=== PATIENT | female | born 1940 | race Caucasian/White ===

== ENCOUNTER 2016-12-30 21:56 | Observation (INO) | payer MEDICARE ==
[~2016-12-30] VITALS: Ht 170.2 cm; Wt 63.0 kg
[~2016-12-30 21:56] MED LIST: TAB-TAB PO; prempro PO
[2016-12-30 21:58] VITALS: BP 224/90; PULSE 71; RESP 14; TEMP 97.8; O2SAT 98
[2016-12-30] MEDS ORDERED: SODIUM CHLORIDE 0.9% FLUSH 10 ML FLUSH IVF PRN (23:00)
[2016-12-30] MEDS ORDERED: HYDROmorphone HCL PF 1 MG/ML VIAL IVS ONE (23:00)
[2016-12-30 23:44] LABS: AUTOMATED NEUTROPHIL # 10.1 TH/MM3 (1.8-7.7); BASOPHIL % 0.3 % (0.0-2.0); EOSINOPHIL # 0.1 TH/MM3 (0-0.4); EOSINOPHIL % 0.4 % (0.0-4.0); HEMATOCRIT 41.7 % (35.0-46.0); HEMO FLAGS DIFF FINAL; LYMPH % 17.8 % (9.0-44.0); LYMPHOCYTE # 2.5 TH/MM3 (1.0-4.8); MEAN CELL VOLUME 87.7 FL (80.0-100.0); MEAN CORPUSCULAR HEMOGLOBIN 28.9 PG (27.0-34.0); MONO % 10.4 % (0.0-8.0); NEUT % 71.1 % (16.0-70.0); PLATELET COUNT 307 TH/MM3 (150-450); RED BLOOD COUNT 4.75 MIL/MM3 (4.00-5.30); RED CELL DISTRIBUTION WIDTH 13.1 % (11.6-17.2); WHITE BLOOD COUNT 14.3 TH/MM3 (4.0-11.0)
[2016-12-31] VITALS (8 sets, daily range): BP systolic 119–191; BP diastolic 58–79; PULSE 61–78; RESP 17–24; TEMP 98–98.1; O2SAT 95–100
[2016-12-31 00:06] LABS: BICARBONATE 31.5 MEQ/L (21.0-32.0)
[2016-12-31] MEDS ORDERED: diphenhydrAMINE HCL 50 MG/ML VIAL IVP ONE (00:30)
[2016-12-31] MEDS ORDERED: PROCHLORPERAZINE INJ 10 MG/2 ML VIAL IVP ONE (00:30)
[2016-12-31] MEDS ORDERED: SODIUM CHLOR 0.9% 1000 ML INJ 1,000 ML IV ONE (00:30)
[2016-12-31] MEDS ORDERED: IOHEXOL 350 MG/ML 10 ML VIAL (for RAD DIAG) IV ONE (00:45)
--- NOTE | 2016-12-31 00:52 | PD ---
HPI Chief Complaint: Back/ Neck Pain or Injury Time Seen by Provider: 22:25 Travel History International Travel<30 days: No Contact w/Intl Traveler<30days: No Traveled to known affect area: No History of Present Illness HPI 76-year-old female arrives complaining of neck pain. It started at rest somewhat abruptly several hours prior and has constantly worsened since. The neck is painful on both sides and radiates anteriorly. Any range of motion of the neck, rotation or flexion extension worsens the pain. She has no numbness tingling weakness. No memory or mentation change has been observed by the patient or family. No similar prior episode has occurred. She denies any change in her normal routine or potential etiology of which she can identify to explain her pain. [facility] Past Medical History Medical History: Denies Significant Hx Cancer: Yes (melanoma removed left arm) Cardiovascular Problems: No Diabetes: No Diminished Hearing: No Hepatitis: No Hiatal Hernia: No Hypertension: No Medical other: Yes (arthritis in the hands and reflux) Respiratory: No Thyroid Disease: No Tetanus Vaccination: > 5 Years Influenza Vaccination: Yes ?: Not Menopausal: Yes Past Surgical History Gynecologic Surgery: Yes (magalis breast implants tubal face lift) Hysterectomy: Yes Other Surgery: Yes Social History Alcohol Use: Yes (WINE WEEKLY) Tobacco Use: No Substance Use: No Allergies-Medications (Allergen,Severity, Reaction): Coded Allergies: penicillin G (Unverified Allergy, Severe, rash, 12/30/16) codeine (Verified Allergy, Unknown, 12/30/16) Reported Meds & Prescriptions Reported Meds & Active Scripts Active Reported Multivitamin (Multivitamins) 1 Tab Tab 1 Tab PO DAILY [prempro] PO DAILY Review of Systems Except as stated in HPI: all other systems reviewed are Neg Physical Exam Narrative GENERAL: 76-year-old female well-nourished well-developed male pleasant mild distress secondary to pain SKIN: Warm and dry. HEAD: Atraumatic. Normocephalic. EYES: Pupils equal and round. No scleral icterus. No injection or drainage. ENT: No nasal bleeding or discharge. Mucous membranes pink and moist. NECK: Trachea midline. No JVD. Range of motion limited with rotation flex and extension. Minimal tenderness palpation along the paracervical musculature. CARDIOVASCULAR: Regular rate and rhythm. RESPIRATORY: No accessory muscle use. Clear to auscultation. Breath sounds equal bilaterally. GASTROINTESTINAL: Abdomen soft, non-tender, nondistended. Hepatic and splenic margins not palpable. MUSCULOSKELETAL: Extremities without clubbing, cyanosis, or edema. No obvious deformities. NEUROLOGICAL: Awake and alert. No obvious cranial nerve deficits. Motor grossly within normal limits. Five out of 5 muscle strength in the arms and legs. Normal speech. PSYCHIATRIC: Appropriate mood and affect; insight and judgment normal. Data Data Last Documented VS Vital Signs Date Time Temp Pulse Resp B/P Pulse Ox O2 Delivery O2 Flow Rate FiO2 12/31/16 01:10 75 19 191/79 100 Nasal Cannula 2 12/30/16 21:58 97.8 Vital signs reviewed Orders Complete Blood Count With Diff (12/30/16 22:58) Basic Metabolic Panel (Bmp) (12/30/16 22:58) Ecg Monitoring (12/30/16 22:58) Iv Access Insert/Monitor (12/30/16 22:58) Oximetry (12/30/16 22:58) Sodium Chloride 0.9% Flush (Ns Flush) (12/30/16 23:00) Hydromorphone Pf Inj (Dilaudid Pf Inj) (12/30/16 23:00) Ct Brain W/O Iv Contrast(Rout) (12/30/16 ) Cta Neck W Iv Contrast W 3d (12/31/16 ) Cta Brain W Iv Contrast W 3d (12/31/16 ) Sodium Chlor 0.9% 1000 Ml Inj (Ns 1000 M (12/31/16 00:30) Prochlorperazine Inj (Compazine Inj) (12/31/16 00:30) Diphenhydramine Inj (Benadryl Inj) (12/31/16 00:30) Iohexol 350 Inj (Omnipaque 350 Inj) (12/31/16 00:45) Hydromorphone Pf Inj (Dilaudid Pf Inj) (12/31/16 01:00) Enalaprilat Inj (Vasotec Inj) (12/31/16 01:45) C-Reactive Protein (Crp) (12/31/16 01:41) Westergren Sedimentation Rate (12/31/16 01:41) Admit Order (Ed Use Only) (12/31/16 01:54) Labs Laboratory Tests Test 12/30/16 23:10 White Blood Count 14.3 TH/MM3 Red Blood Count 4.75 MIL/MM3 Hemoglobin 13.7 GM/DL Hematocrit 41.7 % Mean Corpuscular Volume 87.7 FL Mean Corpuscular Hemoglobin 28.9 PG Mean Corpuscular Hemoglobin 33.0 % Concent Red Cell Distribution Width 13.1 % Platelet Count 307 TH/MM3 Mean Platelet Volume 9.5 FL Neutrophils (%) (Auto) 71.1 % Lymphocytes (%) (Auto) 17.8 % Monocytes (%) (Auto) 10.4 % Eosinophils (%) (Auto) 0.4 % Basophils (%) (Auto) 0.3 % Neutrophils # (Auto) 10.1 TH/MM3 Lymphocytes # (Auto) 2.5 TH/MM3 Monocytes # (Auto) 1.5 TH/MM3 Eosinophils # (Auto) 0.1 TH/MM3 Basophils # (Auto) 0.0 TH/MM3 CBC Comment DIFF FINAL Differential Comment Erythrocyte Sedimentation Rate 22 mm/hr Sodium Level 136 MEQ/L Potassium Level 4.0 MEQ/L Chloride Level 99 MEQ/L Carbon Dioxide Level 31.5 MEQ/L Anion Gap 6 MEQ/L Blood Urea Nitrogen 13 MG/DL Creatinine 0.79 MG/DL Estimat Glomerular Filtration 71 ML/MIN Rate Random Glucose 109 MG/DL Calcium Level 9.1 MG/DL C-Reactive Protein 3.41 MG/DL [facility] Medical Decision Making Medical Screen Exam Complete: Yes Emergency Medical Condition: Yes Medical Record Reviewed: Yes Differential Diagnosis Aneurysm, meningitis, subarachnoid hemorrhage, torticollis, spasm, mass, arthritis, venous thrombosis Narrative Course CBC & BMP Diagram 12/30/16 23:10 Patient reassessed at approximately 12:15 AM and reports nausea and minimal if any improvement. She had received 0.5 mg hydromorphone and Zofran. Benadryl, Compazine and IV fluids added on. Patient reassessed at 1 AM and reported persistent pain. 0.5 mg hydromorphone again ordered. The patient was advised of the workup so far and that she will be staying for pain control. The oncoming provider will follow up the results of the pending imaging with the plan for admission. Fito Hayward MD Dec 31, 2016 00:52
[2016-12-31] MEDS ORDERED: HYDROmorphone HCL PF 1 MG/ML VIAL IV PUSH ONE (01:00)
--- NOTE | 2016-12-31 01:09 | RADRPT ---
EXAM DATE/TIME: 12/31/2016 00:34 [facility] COMPARISON: No previous studies available for comparison. INDICATIONS : Cephalgia. RADIATION DOSE: 34.17 CTDIvol (mGy) MEDICAL HISTORY : None SURGICAL HISTORY : None. ENCOUNTER: Initial ACUITY: 1 day PAIN SCALE: 8/10 LOCATION: cranial TECHNIQUE: Multiple contiguous axial images were obtained of the head. Using automated exposure control and adj ustment of the mA and/or kV according to patient size, radiation dose was kept as low as reasonably a chievable to obtain optimal diagnostic quality images. DICOM format image data is available electro nically for review and comparison. FINDINGS: CEREBRUM: The ventricles are normal for age. No evidence of midline shift, mass lesion, hemorrhage or acute in farction. No extra-axial fluid collections are seen. POSTERIOR FOSSA: The cerebellum and brainstem are intact. The 4th ventricle is midline. The cerebellopontine angle i s unremarkable. EXTRACRANIAL: The visualized portion of the orbits is intact. SKULL: The calvaria is intact. No evidence of skull fracture. CONCLUSION: Negative noncontrast CT brain. Richmond Paz MD on December 31, 2016 at 1:07 Board Certified Radiologist. This report was verified electronically.
--- NOTE | 2016-12-31 01:14 | RADRPT ---
EXAM DATE/TIME: 12/31/2016 00:34 [facility] COMPARISON: CT BRAIN W/O CONTRAST, December 31, 2016, 0:34. INDICATIONS : Cephaliga and neck pain. IV CONTRAST: 75 cc Omnipaque 350 (iohexol) IV RADIATION DOSE: 25.95 CTDIvol (mGy) MEDICAL HISTORY : Melanoma SURGICAL HISTORY : None. ENCOUNTER: Initial ACUITY: 1 day PAIN SCALE: 8/10 LOCATION: neck Elevated flow velocities and ICA/CCA ratios have been found to correlate with increased degrees of vessel stenosis, calculated as percentage of diameter relative to a normal segment of distal ICA/CCA. TECHNIQUE: Volumetric scanning was performed using a multirow detector CT scanner. The data was post processed with a variety of visualization algorithms including full-volume maximum intensity projection, multip lanar sliding thin-slab reformation, curved-planar reformation, and surface-rendering techniques. Us ing automated exposure control and adjustment of the mA and/or kV according to patient size, radiatio n dose was kept as low as reasonably achievable to obtain optimal diagnostic quality images. DICOM f ormat image data is available electronically for review and comparison. FINDINGS: AORTIC ARCH: There is a three-vessel origin of the great vessels from the aorta. No evidence of ostial narrowing. RIGHT CAROTID: The common carotid artery is intact. The carotid bulb has a normal configuration without ulceration o r narrowing. The internal carotid artery lumen is smooth without stenosis. The external carotid clarita ry is intact. LEFT CAROTID: The common carotid artery is intact. The carotid bulb has a normal configuration without ulceration or narrowing. The internal carotid artery lumen is smooth without stenosis. The external carotid ar eloy is intact. VERTEBRALS: The vertebral arteries have a symmetric diameter. No stenotic lesions are seen. CONCLUSION: Negative CTA carotids. Richmond Paz MD on December 31, 2016 at 1:11 Board Certified Radiologist. This report was verified electronically.
--- NOTE | 2016-12-31 01:33 | RADRPT ---
EXAM DATE/TIME: 12/31/2016 00:34 [facility] COMPARISON: No previous studies available for comparison. INDICATIONS : Cephalgia and neck pain IV CONTRAST: 75 cc Omnipaque 350 (iohexol) IV RADIATION DOSE: 25.95 CTDIvol (mGy) ; Combined studies MEDICAL HISTORY : None SURGICAL HISTORY : None. ENCOUNTER: Initial ACUITY: 1 day PAIN SCALE: 8/10 LOCATION: cranial TECHNIQUE: Volumetric scanning was performed using a multi-row detector CT scanner. The data was post processed with a variety of visualization algorithms including full volume maximum intensity projection, multi -planar sliding thin slab reformation, curved planar reformation, and surface rendering techniques. Using automated exposure control and adjustment of the mA and/or kV according to patient size, radiat ion dose was kept as low as reasonably achievable to obtain optimal diagnostic quality images. DICO M format image data is available electronically for review and comparison. FINDINGS: There is excellent visualization of the major intracranial arteries out to the second-order branch ve ssels. There is no evidence for aneurysm, vessel truncation or stenosis, and no evidence for vascula r malformation. Flow is seen in the anterior communicating artery and both PCOM. CONCLUSION: Negative CTA of the [place] of [place]. Richmond Paz MD on December 31, 2016 at 1:30 Board Certified Radiologist. This report was verified electronically.
--- NOTE | 2016-12-31 01:44 | PD ---
Physical Exam Time Seen by Provider: 01:28 Data Data Last Documented VS Vital Signs Date Time Temp Pulse Resp B/P Pulse Ox O2 Delivery O2 Flow Rate FiO2 12/31/16 01:10 75 19 191/79 100 Nasal Cannula 2 12/30/16 21:58 97.8 Orders Complete Blood Count With Diff (12/30/16 22:58) Basic Metabolic Panel (Bmp) (12/30/16 22:58) Ecg Monitoring (12/30/16 22:58) Iv Access Insert/Monitor (12/30/16 22:58) Oximetry (12/30/16 22:58) Sodium Chloride 0.9% Flush (Ns Flush) (12/30/16 23:00) Hydromorphone Pf Inj (Dilaudid Pf Inj) (12/30/16 23:00) Ct Brain W/O Iv Contrast(Rout) (12/30/16 ) Cta Neck W Iv Contrast W 3d (12/31/16 ) Cta Brain W Iv Contrast W 3d (12/31/16 ) Sodium Chlor 0.9% 1000 Ml Inj (Ns 1000 M (12/31/16 00:30) Prochlorperazine Inj (Compazine Inj) (12/31/16 00:30) Diphenhydramine Inj (Benadryl Inj) (12/31/16 00:30) Iohexol 350 Inj (Omnipaque 350 Inj) (12/31/16 00:45) Hydromorphone Pf Inj (Dilaudid Pf Inj) (12/31/16 01:00) Enalaprilat Inj (Vasotec Inj) (12/31/16 01:45) C-Reactive Protein (Crp) (12/31/16 01:41) Westergren Sedimentation Rate (12/31/16 01:41) Admit Order (Ed Use Only) (12/31/16 01:54) Labs Laboratory Tests Test 12/30/16 23:10 White Blood Count 14.3 TH/MM3 Red Blood Count 4.75 MIL/MM3 Hemoglobin 13.7 GM/DL Hematocrit 41.7 % Mean Corpuscular Volume 87.7 FL Mean Corpuscular Hemoglobin 28.9 PG Mean Corpuscular Hemoglobin 33.0 % Concent Red Cell Distribution Width 13.1 % Platelet Count 307 TH/MM3 Mean Platelet Volume 9.5 FL Neutrophils (%) (Auto) 71.1 % Lymphocytes (%) (Auto) 17.8 % Monocytes (%) (Auto) 10.4 % Eosinophils (%) (Auto) 0.4 % Basophils (%) (Auto) 0.3 % Neutrophils # (Auto) 10.1 TH/MM3 Lymphocytes # (Auto) 2.5 TH/MM3 Monocytes # (Auto) 1.5 TH/MM3 Eosinophils # (Auto) 0.1 TH/MM3 Basophils # (Auto) 0.0 TH/MM3 CBC Comment DIFF FINAL Differential Comment Sodium Level 136 MEQ/L Potassium Level 4.0 MEQ/L Chloride Level 99 MEQ/L Carbon Dioxide Level 31.5 MEQ/L Anion Gap 6 MEQ/L Blood Urea Nitrogen 13 MG/DL Creatinine 0.79 MG/DL Estimat Glomerular Filtration 71 ML/MIN Rate Random Glucose 109 MG/DL Calcium Level 9.1 MG/DL MDM Medical Record Reviewed: Yes Supervised Visit with JENNIFER: No Narrative Course I assumed care of this patient pending CT imaging. Please see Dr. Conner's note for complete history of present illness. In summary this is an otherwise healthy 76-year-old female who developed abrupt onset posterior neck pain at 6 PM today. The pain is an aching pain that radiates into the occiput and is constant, worse with movement. She has received 2 doses of Dilaudid prior to my examination and she continues to have persistent pain. She denies any weakness, numbness or tingling in the extremities, blurred vision, chest pain or shortness of breath, fevers or chills, cough or congestion. She denies any injuries. The patient's CT imaging of the brain, CTA of the brain and neck are negative for acute process. WBC is slightly elevated at 14.3. The patient's blood pressure has been elevated during her hospital stay. Her most recent blood pressure reading was 183/81. 1.25 mg enalapril has been added on. Given the patient's intractable pain, the plan is to admit the patient for observation. She is agreeable. ESR/CRP have been ordered as well. Diagnosis Primary Impression: Neck pain Additional Impression: Hypertensive urgency Admitting Information Admitting Physician Requests: Observation Darian Arrieta Dec 31, 2016 01:44
[2016-12-31] MEDS ORDERED: ENALAPRILAT 1.25 MG/ML VIAL IV PUSH ONE (01:45)
[2016-12-31] MEDS ORDERED: cloNIDine HCL 0.1 MG TAB PO PRN (02:00)
[2016-12-31] MEDS ORDERED: NALOXONE HCL 0.4 MG/ML AMP IV PRN (02:00)
[2016-12-31] MEDS ORDERED: BISACODYL 10 MG SUPP RECTAL PRN (02:00)
[2016-12-31] MEDS ORDERED: ACETAMINOPHEN/HYDROcodone 325 MG/10 MG TAB PO PRN (02:00)
[2016-12-31] MEDS ORDERED: ACETAMINOPHEN 325 MG TAB PO PRN ×2 (02:00)
[2016-12-31] MEDS ORDERED: SENNOSIDES 8.6 MG TAB PO PRN (02:00)
[2016-12-31] MEDS ORDERED: SODIUM CHLORIDE 0.9% FLUSH 10 ML FLUSH IV FLUSH PRN (02:00)
[2016-12-31] MEDS ORDERED: ONDANSETRON HCL 4 MG/2 ML VIAL IVP PRN (02:00)
[2016-12-31] MEDS ORDERED: LACTULOSE SYRUP 20 GM/30 ML CUP PO PRN (02:00)
[2016-12-31] MEDS: ENOXAPARIN SODIUM 40 MG/0.4 ML SYRINGE SQ SCH (02:51)
[2016-12-31 06:27] LABS: BLOOD, URINE NEG (NEG); GLUCOSE,URINE NEG (NEG); KETONE, URINE NEG (NEG); MUCUS URINE FEW /lpf (OCC); SQUAMOUS EPITHELIAL CELL URINE 1 /hpf (0-5); URINE COLOR YELLOW (YELLW/STRAW)
[2016-12-31 06:28] LABS: COMMENT (UR) CULTURE INDICATED; CULTURE IF INDICATED CULTURE INDICATED; NITRITE,URINE POS (NEG)
--- NOTE | 2016-12-31 09:01 | EKG ---
Date Performed: 12/31/2016 Time Performed: 02:45:20 PTAGE: 76 years EKG: Sinus rhythm NORMAL ECG PREVIOUS TRACING : 04/21/2011 11.13 Compared to prior tracing no significant change DOCTOR: Derick Louis Interpretating Date/Time 12/31/2016 08:56:16
[2016-12-31] MEDS: SODIUM CHLORIDE 0.9% FLUSH 10 ML FLUSH IV FLUSH SCH ×2 (09:48→22:48)
[2016-12-31] MEDS: ACETAMINOPHEN/HYDROcodone 325 MG/5 MG TAB PO PRN ×2 (09:56→18:21)
[2016-12-31] MEDS: LEVOFLOXACIN 500 MG TAB PO SCH (09:56)
--- NOTE | 2016-12-31 10:41 | MH ---
cc: LYNN CLAUDIO MD DATE OF ADMISSION: 12/31/2016 DATE OF 1940 REASON FOR ADMISSION/CHIEF COMPLAINT Acute onset neck pain history. TRAVEL IN THE LAST 30 DAYS None HISTORY OF PRESENT ILLNESS This is a pleasant 76-year-old white female who has been in her usual state of health up until yesterday. She states that she slept well the night before admission, got up, came to [facility] to visit a friend. She noticed acute onset of neck pain and describes it as an aching pain on the left and right side of the back of her neck radiating down into her shoulders. She also noted that the pain went up into the back of her head. The patient states that she could not turn her neck and described the pain as very excruciating to the point that it was intolerable and the worst pain she had ever had. She denies any numbness or tingling in her upper extremities. Denies any problems with her gait or balance. States the pain is 50% better, but still persists. Pain management has assisted in the control, but she has had some mild nausea after taking the pain meds, but no vomiting. The patient denies any headaches, any chest tightness, states that her health has been good. She does note some end joint arthritis in her left and right two fingers. That has been managed by her PCP. When the patient was evaluated in the emergency room, blood pressure was accelerated high and the patient is known for any problems of hypertension. Now with blood pressure has come down and we will continue to monitor. MEDICAL HISTORY 1. Melanoma removed from the left arm. 2. End joint arthritis. 3. Reflux PAST SURGICAL HISTORY 1. Breast implants 2. Face lift 3. Tubal ligation 4. Hysterectomy ALLERGIES CODEINE, PENICILLIN G. MEDICATIONS 1. Active 2. Multivitamins 3. Prempro SOCIAL HISTORY The patient has social wine weekly. Smoked in her early years, but no tobacco use in 36. No illicit drugs. She is single, , lives alone. Has a lot of friends and family support. REVIEW OF SYSTEMS A 14-point review was obtained. Positives noted in the HPI which include ir-retractable neck pain left and right side. Could not turn her head. Continuous aching. No numbness or tingling. No problems with gait. Any other signs and symptoms negative or unremarkable. Some nausea after pain meds, but no vomiting. PHYSICAL EXAM VITAL SIGNS: Temperature is 97.8, pulse 71, respiratory rate 18, blood pressure 156/67. Please note that her blood pressure was 224/90 when she first came in and the patient is not known for any hypertension. O2 sat 98 currently on room air. Has been on O2 at two liters in the emergency room setting. GENERAL: A well-nourished, well-developed white female who looks to be younger than her stated age resting in the bed, alert, oriented, cooperative. SKIN: [place], warm and dry. HEAD, EYES, EARS, NOSE, AND THROAT: Atraumatic, normocephalic, PERRLA at 2. Mucous membranes are moist. No scleral icterus. Tongue and oral cavity are clear. NECK: Supple. CARDIOVASCULAR: S1-S2, rhythm is regular. No audible murmurs, rubs, or gallops. RESPIRATORY: Essentially clear anteriorly and posteriorly with no wheezes or rhonchi. ABDOMEN: Flat, soft, nontender, nondistended. Bowel sounds are active. MUSCULOSKELETAL: She moves her extremities with purpose. She has no obvious deformities. She has no edema. Pulses are intact. Extremities are warm. NEUROLOGIC: She is awake, alert, a good historian, equal hand cupola patcher. Normal speech. PSYCHIATRIC: Mood and affect are appropriate. DIAGNOSTIC DATA WBC count 14.3, RBC 4.7, hemoglobin 13.7, hematocrit 41.7. Chemistry sodium 136, potassium 4, chloride 99, BUN 13, creatinine 0.79, GFR 71, random glucose 109, calcium 9.1. C-reactive protein 3.41, procalcitonin is pending. Urine is yellow, clear, specific gravity greater than 1.050, trace of protein, positive nitrite, trace of leukocyte Estrace, bilirubin negative, glucose, ketones and occult blood negative. Culture is indicated and pending. ASSESSMENT AND PLAN 1. Hypertensive urgency which is now resolving with pain control. 2. Ir-retractable neck pain left and right side. No numbness or tingling in her extremities. 3. UTI possible. Culture is pending. 4. 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 Our plan is to monitor her vital signs, pain management. She had a full workup including CTA of neck, brain with IV contrast. No acute findings noted. ECG monitoring will continue. Medical management. Noted in her labs are a positive C-reactive protein. This will be further evaluated, but the patient does have a history of end joint arthritis. DVT prophylaxis. O2 as needed pain management IV and/or p.o. The patient is listed in observation. Urine culture is pending. Since pain continues, we will look at further testing and evaluation that need to be done today. We will put the patient on p.o. Levaquin for a possible UTI. The patient is full code, full aggressive care. We will follow. 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 I reviewed the findings presented. I attest that I had a [id number] encounter with the patient on the same day, and personally performed and documented my assessment and findings in the medical record. [place]
--- NOTE | 2016-12-31 11:16 | PD.PN.STU ---
Subjective Remarks HPI: Patient being seen for complaint of neck pain. Patient reports that the pain came on suddenly last night which prompted her to come to the ER. The pain is along the back of her neck and occipital region, radiating anteriorly. She described the pain as a constant ache was 10/10 on the pain scale initially. She tried using heat on her neck last evening but did not find this to relieve her symptoms. The pain is worsened by movement and laying flat. Upon admission she was given Dilaudid for the pain and this did not help initially but is providing some relief now; the pain is currently a 6 on the pain scale, and is constant. She has found it difficult to get comfortable overnight which prevented her from getting any significant sleep. She has never had any symptoms like this before. She cannot recall any significant inciting event, trauma, or any recent sick contacts. She did mention that she went on a road trip to [place] last week where she was driving. She is also concerned because her blood pressure was elevated at admission and she does not have a history of hypertension. ROS: Denies weakness, numbness, tingling, frontal headache, lightheadedness, heart palpitations, shortness of breath. Otherwise negative except for what is mentioned above. Past medical history: Denies any significant medical history. Past surgical history: Hysterectomy. Some cosmetic procedures. Bilateral cataract surgery. Medications: Amitriptyline. HRT. Xanax. Allergies: Codeine, Penicillin G Social History: Exercises daily (walking); Reports tobacco use in the [place]. Drinks wine once weekly. Occasionally drinks a caffeinated beverage Objective Vitals Vital Signs Date Time Temp Pulse Resp B/P Pulse Ox O2 Delivery O2 Flow Rate FiO2 12/31/16 09:57 63 17 143/64 97 Room Air 12/31/16 09:00 17 12/31/16 06:14 67 18 156/67 98 Room Air 12/31/16 02:50 78 18 176/79 100 Nasal Cannula 2 12/31/16 02:08 98 Nasal Cannula 2.00 12/31/16 01:10 75 19 191/79 100 Nasal Cannula 2 12/30/16 22:31 76 12/30/16 21:58 97.8 71 14 224/90 98 Room Air I/O 12/30/16 12/30/16 12/30/16 12/31/16 12/31/16 12/31/16 07:00 15:00 23:00 07:00 15:00 23:00 Intake Total 240 ml Balance 240 ml Intake Oral 240 ml Result Diagram: 12/30/16230912/30/162309 Objective Remarks General: WDWN female who is alert and cooperative. Appears stiff. HEENT: Normocephalic. Pupils equal and reactive to light, no icterus. No LAD. Posterior neck mild splotchy erythema. Restricted ROM of neck due to pain. Respiratory: No noted use of accessory muscle. Clear breath sounds bilaterally. No wheezes or crackles. Cardiovascular: RRR, S1 S2 normal. No noted murmurs or rubs. Abdominal: Bowel sounds present in all 4 quadrants. No tenderness to light or deep palpation. No guarding. Extremities: No noted edema. Radial, dorsalis pedis, and posterior tibialis pulses 2+ bilaterally. Neuro/Psych: Oriented to person, place, and time. Cranial nerves intact. Sensation intact. A/P Assessment and Plan Neck and occipital pain: CT negative. Possible muscle spasm. Give muscle relaxer with or without analgesia and monitor progress. Hypertensive Urgency: Isolated systolic pressure elevation. Elevated BP could due pain reaction considering negative past medical history for hypertension; also possible age related change. Continue to monitor at regular intervals. Treat pain and watch response. Provide antihypertensive agent as needed. Leukocytosis: WBC 14.3. Continue to monitor. Get ESR, CRP, and UA. Levaquin ordered. Addendum by Dr. Singh I personally seen and examined this patient Discussed with medical student Agree with above [place] is referred to my independent note for more details Essence Griffin Dec 31, 2016 11:16 Eleazar Singh MD Jan 01, 2017 13:56
--- NOTE | 2016-12-31 17:11 | RADRPT ---
EXAM DATE/TIME: 12/31/2016 16:32 [place] COMPARISON: No previous studies available for comparison. INDICATIONS : Severe neck pain MEDICAL HISTORY : One normal right arm SURGICAL HISTORY : Breast implants ENCOUNTER: Initial ACUITY: 2 days. no injury PAIN SCORE: 6/10 LOCATION: Neck TECHNIQUE: Multiplanar, multisequence MRI examination of the cervical spine was performed. FINDINGS: VERTEBRAE: Normal vertebral body height. Homogeneous marrow signal. ALIGNMENT: There is mild retrolisthesis of C5 on C6 of approximately 4-5 mm.. There is reversal of the normal ce rvical lordosis centered at the C4 level. DISCS: Degenerative disc changes are present greatest at the C4-5 and C5-6 levels with disc space narrowing and hypertrophic change. There is mass effect on the anterior thecal sac and slight flattening of the cord at these levels. CORD: Slight anterior flattening at the C4-5 and C5-6 levels no definite abnormal signal on the sagittal im ages. POST FOSSA: The cerebellar tonsils are normal in position. C2-C3: The thecal sac has a normal configuration. There is no evidence of disc herniation or spinal canal s tenosis. The neural foramina are patent bilaterally. C3-C4: There is a mild posterior disc osteophyte complex which meets the anterior cord with no mass effect o r abnormal signal. CSF remains posterior to the cord. There is mild narrowing of the neural foramina. C4-C5: There is a broad-based disc osteophyte complex which meets the anterior cord with mild flattening and no abnormal signal. CSF remains posterior to the cord. The residual AP diameter of the canal measure s approximately 9-10 mm. There is mild narrowing of the neural foramina bilaterally. C5-C6: Broad-based disc osteophyte complex with mild flattening of the cord. The CSF space surrounding the c ord is obliterated with residual AP diameter the canal measuring 7 mm. There is moderate narrowing of the neural foramina bilaterally. C6-C7: The thecal sac has a normal configuration. There is no evidence of disc herniation or spinal canal s tenosis. The neural foramina are patent bilaterally. C7-T1: The thecal sac has a normal configuration. There is no evidence of disc herniation or spinal canal s tenosis. The neural foramina are patent bilaterally. CONCLUSION: 1. Central canal stenosis at the C5-6 level secondary to broad-based disc osteophyte complex and retr olisthesis of C5 on C6 of several millimeters. The CSF space surrounding the cord is obliterated and there is a residual AP diameter of the canal measuring 7-8 mm. 2. Broad-based disc osteophyte complex at C4-5 with mild flattening of the cord and no abnormal signa l. 3. Degenerative disc change greatest at the C4-5 and C5-6 level with reversal of normal cervical lord osis. 4. Narrowing of the neural foramina bilaterally at the C3-4 through C5-6 levels. Rodrigo Darling MD on December 31, 2016 at 17:01 Board Certified Radiologist. This report was verified electronically.
[2017-01-01] VITALS (7 sets, daily range): BP systolic 136–142; BP diastolic 68–80; PULSE 56–67; RESP 17–20; TEMP 97.3–97.9; O2SAT 94–100
[2017-01-01] MEDS: ENOXAPARIN SODIUM 40 MG/0.4 ML SYRINGE SQ SCH (02:00)
[2017-01-01] MEDS: ACETAMINOPHEN/HYDROcodone 325 MG/5 MG TAB PO PRN ×2 (03:11→08:40)
--- NOTE | 2017-01-01 08:18 | HHI.PR ---
Subjective Remarks Eyes open, awake Resting in the bed Still having neck discomfort and decreased mobility (Lucero Hayes) Objective Objective Results - Vital Signs Date Time Temp Pulse Resp B/P Pulse Ox O2 Delivery O2 Flow Rate FiO2 01/01/17 07:55 97.9 60 20 142/77 96 01/01/17 06:09 95 21 01/01/17 04:51 97.3 67 17 136/74 94 01/01/17 00:00 97.3 62 20 141/68 95 12/31/16 20:44 98.0 64 17 132/62 95 12/31/16 16:15 98.1 62 18 158/72 12/31/16 13:14 61 24 119/58 96 Room Air 12/31/16 11:27 16 12/31/16 09:57 63 17 143/64 97 Room Air 12/31/16 09:00 17 I/O 12/31/16 12/31/16 12/31/16 01/01/17 01/01/17 01/01/17 07:00 15:00 23:00 07:00 15:00 23:00 Intake Total 240 ml Balance 240 ml Intake Oral 240 ml (Lucero Hayes) Result Diagram: 12/30/16 2310 12/30/16 2310 Other Results Last Impressions Neck CTA 12/31/16 0000 Signed Impressions: Service Date/Time: December 00:34 - CONCLUSION: Negative CTA carotids. Richmond Paz MD Head CTA 12/31/16 0000 Signed Impressions: Service Date/Time: December 00:34 - CONCLUSION: Negative CTA of [place]. Richmond Paz MD Cervical Spine MRI 12/31/16 0000 Signed Impressions: Service Date/Time: December 16:32 - CONCLUSION: 1. Central canal stenosis at the C5-6 level secondary to broad-based disc osteophyte complex and retrolisthesis of C5 on C6 of several millimeters. The CSF space surrounding the cord is obliterated and there is a residual AP diameter of the canal measuring 7-8 mm. 2. Broad-based disc osteophyte complex at C4-5 with mild flattening of the cord and no abnormal signal. 3. Degenerative disc change greatest at the C4-5 and C5-6 level with reversal of normal cervical lordosis. 4. Narrowing of the neural foramina bilaterally at the C3-4 through C5-6 levels. Rodrigo Darling MD Head CT 12/30/16 0000 Signed Impressions: Service Date/Time: December 00:34 - CONCLUSION: Negative noncontrast CT brain. Richmond Paz MD (Lucero Hayes) ROS General: Weakness, Other (10 point ROS done positives noted) /SALARY MANAGER: Other (treatment for UTI, asymptomatic) (Lucero Hayes) Physical Exam Physical Exam PHYSICAL EXAMINATION GENERAL: This is a well-developed, female resting in the bed very cautious about the movement of her neck She is alert and awake, []. HEAD: Normocephalic OROPHARYNGEAL: Oropharynx without erythema or edema. NECK: Decreased mobility, some guarding with movement Trachea midline without deviation. CARDIAC: Regular rhythm, regular rate, S1 and S2 are heard. No murmurs audible LUNGS: Clear to auscultation bilaterally. No use of accessory muscles on inspiration or expiration. ABDOMEN: Soft, nontender, no organomegaly or masses. Bowel sounds are heard in all four quadrants. No rebound. No guarding. EXTREMITIES: no edema. Pulses equal bilateral. NEUROLOGICAL: Patient mood and affect appropriate. Mild anxiety over current condition SKIN:Warm and moist (Lucero Hayes) A/P Assessment and Plan Vital signs reviewed, normal trends now patient is afebrile Labs reviewed, mild leukocytosis noted on admission, probable for UTI Recheck labs in the morning DVT prophylaxis Monitor bowel regimen, currently no BM since admission 1. Hypertensive urgency which is now resolving with pain control. vital signs every 4 hrs, non controlled at 136/74, patient has no history of hypertension, initial BPs were probably related to her neck pain and acute event. We'll continue to monitor 2. Ir-retractable neck pain left and right side. No numbness or tingling in her extremities. MRI CT, abnormal findings with C5-C6 stenosis, neurosurgery consult, appreciate expert opinion and plan a care, pain management , moderate effectiveness pain still persist, still has generalized stiffness with decreased mobility to her neck. 3. UTI possible. Culture is pending. Patient's now on Levaquin by mouth, denies any current symptoms but states that she does have urinary tract infections at intervals. 4. 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 Medical management (Lucero Hayes) Assessment and Plan seen, examined by myself, Dr Singh, today Discussed with patient She was sedated the hospital AGAINST MEDICAL ADVICE She was made aware of the risk to her cervical spine from the abnormality described on MRI She is advised to see neurosurgeon as outpatient as soon as possible She is advised not to drive until she sees the neurosurgeon She is also advised to wear a soft collar to avoid sudden neck movements Also there are no actual symptoms to suggest active urinary infection, therefore antibiotics are being discontinued Discussed with mid level provider The exam, history, and the medical decision-making described in the above note were completed with the assistance of the mid-level provider. I reviewed the findings presented. I attest that I had a [id number] encounter with the patient on the same day, and personally performed and documented my assessment and findings in the medical record. 40 minutes Discussed With: Nurse (Eleazar Singh MD) Lucero Hayes Jan 01, 2017 08:18 Eleazar Singh MD Jan 01, 2017 13:57
[2017-01-01] MEDS: LEVOFLOXACIN 500 MG TAB PO SCH (08:30)
[2017-01-01] MEDS: SODIUM CHLORIDE 0.9% FLUSH 10 ML FLUSH IV FLUSH SCH (08:31)
--- NOTE | 2017-01-01 09:26 | PD.CONS ---
History of Present Illness Service Neurosurgery Consult Requested By Medicine service Reason for Consult Neck pain Primary Care Physician Missy Ramon M.D. Diagnoses: History of Present Illness 76-year-old female who awoke with significant neck pain on 12/31/16. Reported to the emergency room. The pain radiated into the shoulders without significant upper extremity pain weakness or numbness. The significant low back pain or lower extremity symptoms No bowel or bladder dysfunction. No significant previous episodes. Denies significant headache blurred vision or diplopia speech difficulty memory loss. Review of Systems Constitutional: DENIES: Fatigue, Fever Eyes: DENIES: Blurred vision, Diplopia Ears, nose, mouth, throat: DENIES: Hearing loss Cardiovascular: DENIES: Chest pain, Palpitations Gastrointestinal: DENIES: Abdominal pain, Nausea Genitourinary: DENIES: Urinary incontinence Musculoskeletal: COMPLAINS OF: Joint pain, Muscle aches, Stiffness, Neck pain, DENIES: Joint Swelling, Back pain Hematologic/lymphatic: DENIES: Bruising Neurologic: DENIES: Abnormal gait, Headache Psychiatric: DENIES: Anxiety, Confusion Past Family Social History Allergies: Coded Allergies: penicillin G (Unverified Allergy, Severe, rash, 02/01/17) codeine (Verified Allergy, Unknown, 02/01/17) Past Medical History Arthritis Past Surgical History Tubal ligation Hysterectomy Breast implant Facelift Reported Medications Reported Meds & Active Scripts Active Reported Alprazolam 0.25 Mg Tab Estradiol 1 Mg Tab Amitriptyline (Amitriptyline HCl) 10 Mg Tab [prempro] PO DAILY Social History Previous smoker No significant alcohol Physical Exam Vital Signs Vital Signs Date Time Temp Pulse Resp B/P Pulse Ox O2 Delivery O2 Flow Rate FiO2 01/01/17 08:19 100 21 01/01/17 07:55 97.9 60 20 142/77 96 01/01/17 06:09 95 21 01/01/17 04:51 97.3 67 17 136/74 94 01/01/17 00:00 97.3 62 20 141/68 95 12/31/16 20:44 98.0 64 17 132/62 95 12/31/16 16:15 98.1 62 18 158/72 12/31/16 13:14 61 24 119/58 96 Room Air 12/31/16 11:27 16 12/31/16 09:57 63 17 143/64 97 Room Air Physical Exam GENERAL: This is a well-nourished, well-developed patient, no apparent distress. SKIN: No abrasions, contusion, rash noted. Skin warm and dry. HEAD: Atraumatic. Normocephalic. No temporal or scalp tenderness. EYES: Sclerae are clear and nonicteric ENT: No facial edema or ecchymosis. No periorbital edema. No CSF otorrhea or rhinorrhea. No palpable facial fracture or deformity. NECK: Moderate diffuse tenderness neck and upper thoracic region. Good shoulder range of motion without joint pain. Cervical range of motion 45 rotation, 30 flexion extension CARDIOVASCULAR: Regular rate and rhythm without murmurs, gallops, or rubs. RESPIRATORY: Clear to auscultation. Breath sounds equal bilaterally. No wheezes , rales, or rhonchi. GASTROINTESTINAL: Abdomen soft, non-tender, nondistended. No hepato-splenomegaly , or palpable masses. No guarding. MUSCULOSKELETAL: Extremities without cyanosis, or edema. No joint tenderness, or edema noted. No calf tenderness. Dorsalis pedis pulses 2+ bilateral NEUROLOGICAL: Awake and alert Oriented X 3 Speech is clear Conversant and appropriate Follow simple commands well Answers questions appropriately Reasonable judgment and insight Recent and remote memory are intact No evidence of anxiety or depression Pupils are equal and reactive to accommodation. Extra-ocular movements, visual baker to confrontation, facial sensorimotor, tongue, palate, sternocleidomastoid testing, hearing to finger rub testing, and bilateral shoulder shrug are all intact. Sensation is intact to light touch in all extremities Strength normal major flexion and extension groups all extremities Lila's absent bilaterally No ankle clonus Plantar responses absent bilateral Fine motor movements intact upper extremities Laboratory Date/Time Procedure Status Source Growth 12/31/16 06:15 Urine Culture Received Urine Clean Catch Pending Result Diagram: 12/30/16 2310 12/30/16 2310 Imaging Last Impressions Neck CTA 12/31/16 0000 Signed Impressions: Service Date/Time: December 00:34 - CONCLUSION: Negative CTA carotids. Richmond Paz MD Head CTA 12/31/16 0000 Signed Impressions: Service Date/Time: December 00:34 - CONCLUSION: Negative CTA of [place]. Richmond Paz MD Cervical Spine MRI 12/31/16 0000 Signed Impressions: Service Date/Time: December 16:32 - CONCLUSION: 1. Central canal stenosis at the C5-6 level secondary to broad-based disc osteophyte complex and retrolisthesis of C5 on C6 of several millimeters. The CSF space surrounding the cord is obliterated and there is a residual AP diameter of the canal measuring 7-8 mm. 2. Broad-based disc osteophyte complex at C4-5 with mild flattening of the cord and no abnormal signal. 3. Degenerative disc change greatest at the C4-5 and C5-6 level with reversal of normal cervical lordosis. 4. Narrowing of the neural foramina bilaterally at the C3-4 through C5-6 levels. Rodrigo Darling MD Head CT 12/30/16 0000 Signed Impressions: Service Date/Time: December 00:34 - CONCLUSION: Negative noncontrast CT brain. Richmond Paz MD Assessment and Plan Assessment and Plan Impression: 1. Acute cervicalgia. Etiology undetermined. May be related to facet mediated pain, myofascial pain and spasm. Possible mild radiculopathy 2. Moderate mid cervical stenosis without evidence of focal radiculopathy or myelopathy on exam Recommendations: Findings were discussed at length with the patient. Imaging study results were discussed with her It is recommended that she continue conservative treatment. Her neck pain is improving Continue therapy Signs and symptoms to watch for, activity precautions, exercises all fully discussed She can be followed as an outpatient as needed and is stable for discharge from a neurosurgical standpoint. Delroy Connor MD Jan 01, 2017 09:26
[2017-01-01 12:20] LABS: BASOPHIL # 0.1 TH/MM3 (0-0.2); BASOPHIL % 0.5 % (0.0-2.0); EOSINOPHIL # 0.1 TH/MM3 (0-0.4); EOSINOPHIL % 0.7 % (0.0-4.0); HEMATOCRIT 36.9 % (35.0-46.0); HEMO FLAGS DIFF FINAL; LYMPH % 15.9 % (9.0-44.0); LYMPHOCYTE # 1.7 TH/MM3 (1.0-4.8); MEAN CELL VOLUME 87.6 FL (80.0-100.0); MEAN CORPUSCULAR HEMOGLOBIN 29.9 PG (27.0-34.0); MEAN CORPUSCULAR HGB CONC 34.1 % (32.0-36.0); MONO % 9.3 % (0.0-8.0); NEUT % 73.6 % (16.0-70.0); PLATELET COUNT 256 TH/MM3 (150-450); RED BLOOD COUNT 4.21 MIL/MM3 (4.00-5.30); RED CELL DISTRIBUTION WIDTH 13.1 % (11.6-17.2); WHITE BLOOD COUNT 10.9 TH/MM3 (4.0-11.0)
--- NOTE | 2017-01-01 14:06 | HHI.DS ---
Discharge Summary Admission Date Dec 31, 2016 at 01:56 Admitting Diagnosis intractable neck pain, hypertensive urgency CBC/BMP: 01/01/17 1134 12/30/16 2310 Significant Findings Laboratory Tests Test 12/30/16 12/31/16 01/01/17 23:10 06:15 11:34 White Blood Count 14.3 TH/MM3 (4.0-11.0) Neutrophils (%) (Auto) 71.1 % 73.6 % (16.0-70.0) (16.0-70.0) Monocytes (%) (Auto) 10.4 % 9.3 % (0.0-8.0) (0.0-8.0) Neutrophils # (Auto) 10.1 TH/MM3 8.0 TH/MM3 (1.8-7.7) (1.8-7.7) Monocytes # (Auto) 1.5 TH/MM3 1.0 TH/MM3 (0-0.9) (0-0.9) Estimat Glomerular Filtration 71 ML/MIN (>89) Rate Random Glucose 109 MG/DL (74-106) C-Reactive Protein 3.41 MG/DL (0.00-0.30) Urine Specific [place] GREATER THAN 1.050 (1.002-1.035) Urine Nitrite POS (NEG) Urine Leukocyte Esterase TRACE (NEG) Urine Mucus FEW /lpf (OCC) Hospital Course This is a 76-year-old lady who was admitted with intractable neck pain, MRI of the neck shows stenosis at the C5-C6 level, neurosurgical evaluation was requested however the patient decided to leave AGAINST MEDICAL ADVICE before seeing the neurosurgeon. She was made aware of the possible detrimental effect of her condition to the function of her body from the Neck down. She verbalized understanding No specific recommendations were otherwise able to be given as she left the hospital prematurely Pt Condition on Discharge: Eleazar Holguin MD Jan 01, 2017 14:06
[2017-02-01] MEDS ORDERED: AMIT10TA6 (14:47)
[2017-02-01] MEDS ORDERED: ALPR0.25 (14:47)
[2017-02-01] MEDS ORDERED: ESTR1TAB (14:47)
== END 2017-01-01 14:33 | disposition left against medical advice (07) ==
LOC: NEPD 21:56 → NEDA 12-31 01:56 → NEPFCDU 12-31 15:44
PROVIDERS: ADMIT Specialist; ATTEND Specialist
DX: M54.2 Cervicalgia (principal); I16.0 Hypertensive urgency; N39.0 Urinary tract infection, site not specified; B96.1 Klebsiella pneumoniae [K. pneumoniae] as the cause of diseases classified elsewhere; M48.02 Spinal stenosis, cervical region; M19.042 Primary osteoarthritis, left hand; I10 Essential (primary) hypertension; K21.9 Gastro-esophageal reflux disease without esophagitis; Z85.820 Personal history of malignant melanoma of skin; Z87.891 Personal history of nicotine dependence; D72.829 Elevated white blood cell count, unspecified
CPT/HCPCS: 70450; 70496; 70498; 72141; 80048; 81001; 84145; 85025; 85652; 86140; 87077; 87086; 87186; 93005; 96372; 96374; 96375; 96376; 99285; G0378; J0780; J1170; J1200; J1650; J7030; Q9967